=== PATIENT | male | born 1950 | race American Indian/Alaskan Native ===

== ENCOUNTER 2018-08-24 09:59 | Emergency (ER) | payer MEDICARE ==
[2018-08-24 10:06] VITALS: BP 137/76
--- NOTE | 2018-08-24 11:05 | Cat Scan Report ---
CT HEAD WITHOUT CONTRAST: HISTORY: Fall, head trauma. TECHNIQUE: Sequential 2.5mm CT images. COMPARISON: none. FINDINGS: Cerebral Parenchyma: Within normal limits. Cerebellum: Within normal limits. Brainstem: Within normal limits. Ventricles: Normal. Sella: Normal. Extra-axial spaces: Normal. Basal Cisterns: Normal. Intracranial Hemorrhage: None. Midline Shift: None. Calvarium: Normal. Sinuses: Normal. Mastoid Air Cells: Normal. Visualized Orbits: Normal. IMPRESSION: Cranial CT scan within normal limits.
--- NOTE | 2018-08-24 11:09 | XRay Report ---
RIGHT WRIST, 3 VIEWS: History: Fall, pain. Borderline bone mineralization. Mild osteoarthritic changes are identified. A mildly displaced fracture is identified near the base of the fifth metacarpal. No calcified callus is appreciated consistent with acute injury. Soft tissue vascular calcifications are noted. IMPRESSION: Fracture, fifth metacarpal base. Mild osteoarthritis.
--- NOTE | 2018-08-24 11:48 | Emergency Department Report ---
HPI - General Chief Complaint: Fall - HPI HPI: pATIENT WAS UNABLE TO BE LOCATED AT APPROXIMATELY 10:15 FROM THE ER WAITING ROOM. Results of his radiology studies have been noted. He does have a fracture of his hand. I have called the patient's phone number which she provided this morning. And left a voicemail for him to return the call. He should come back for further evaluation ED Past Medical Hx - Past Medical History Previous Medical History?: Yes Hx Renal Disease: Yes Additional medical history: Right kidney transplant 09/05/2015 - Surgical History Past Surgical History?: Yes Additional Surgical History: kidney transplant 09/05/2015. back surgery - Social History Smoking Status: Never Smoker Substance Use Type: None ED Review of Systems ROS: Stated complaint: FELL Other details as noted in HPI Physical Exam - Physical Exam Vital Signs: Vital Signs 08/24/18 10:05 Temperature 98.2 F Pulse Rate 81 Respiratory 16 Rate Blood Pressure 137/76 [Right] O2 Sat by Pulse 97 Oximetry ED Course Vital Signs 08/24/18 10:05 Temperature 98.2 F Pulse Rate 81 Respiratory 16 Rate Blood Pressure 137/76 [Right] O2 Sat by Pulse 97 Oximetry Critical care attestation.: If time is entered above; I have spent that time in minutes in the direct care of this critically ill patient, excluding procedure time. ED Disposition Clinical Impression: Fracture Disposition: Z-07 ELOPED Is pt being admited?: No Does the pt Need Aspirin: No Condition: Stable Referrals: PRIMARY CARE, [Primary Care Provider] - 3-5 Days
--- NOTE | 2018-08-24 11:58 | Emergency Department Report ---
ED Fall HPI - General Chief Complaint: Fall Stated Complaint: FELL Source: patient Mode of arrival: Ambulatory - History of Present Illness Initial Comments: Patient is 67 years old male, presented to the emergency room for evaluation after a fall this morning. 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 Patient stating that he's been having headache since then. He also complained of right hand pain. Patient denied any loss of consciousness, neck pain, chest pain, shortness of breath, abdominal pain or other extremities pain. MD Complaint: fall -: This morning Fall From: standing When Fall Occurred: 1-3 hours [employer] Fall Witnessed: yes, by family Place Fall Occurred: street Loss of Consciousness: none Prolonged Down Time?: no Symptoms Prior to Fall: none Location: head, face Location - Extremities: Right: Hand Severity: moderate Severity scale (0 -10): 6 Quality: sharp Context: tripped/slipped Associated Symptoms: denies - Related Data Allergies Allergy/AdvReac Type Severity Reaction Status Date / Time No Known Allergies Allergy Unverified 12/07/13 12:44 ED Review of Systems ROS: Stated complaint: FELL Other details as noted in HPI Comment: All other systems reviewed and negative Constitutional: denies: chills, fever Respiratory: denies: cough, orthopnea, shortness of breath, SOB with exertion Cardiovascular: denies: chest pain, palpitations, dyspnea on exertion Gastrointestinal: denies: abdominal pain, nausea, vomiting, diarrhea, constipation, hematemesis, melena Musculoskeletal: denies: back pain Skin: other (abrasions lateral to the right eyebrow) Neurological: headache. denies: weakness, numbness, paresthesias, confusion, abnormal gait ED Past Medical Hx - Past Medical History Previous Medical History?: Yes Hx Renal Disease: Yes Additional medical history: Right kidney transplant 09/05/2015 - Surgical History Past Surgical History?: Yes Additional Surgical History: kidney transplant 09/05/2015. back surgery - Social History Smoking Status: Never Smoker Substance Use Type: None ED Physical Exam - General Limitations: No Limitations General appearance: alert, in no apparent distress - Head Head exam: Present: atraumatic, normocephalic, normal inspection - Eye Eye exam: Present: normal appearance - ENT ENT exam: Present: normal exam, normal orophraynx, mucous membranes moist - Neck Neck exam: Present: normal inspection, full ROM. Absent: tenderness, meningismus, lymphadenopathy, thyromegaly - Respiratory Respiratory exam: Present: normal lung sounds bilaterally - Cardiovascular Cardiovascular Exam: Present: regular rate, normal rhythm, normal heart sounds - GI/Abdominal GI/Abdominal exam: Present: soft, normal bowel sounds. Absent: distended, tenderness, guarding, rebound, rigid - exam: Present: normal inspection - Extremities Exam Extremities exam: Present: normal capillary refill. Absent: pedal edema, calf tenderness - Expanded Upper Extremity Exam Right Shoulder Exam: Present: normal inspection, full ROM Upper Arm exam: Present: normal inspection, full ROM Elbow exam: Present: normal inspection, full ROM. Absent: tenderness Forearm Wrist exam: Present: normal inspection, full ROM Hand Wrist exam: Present: tenderness, swelling. Absent: abrasion, laceration, ecchymosis, deformity, crepidus, dislocation - Back Exam Back exam: Present: normal inspection, full ROM. Absent: tenderness, CVA tenderness (R), CVA tenderness (L), muscle spasm, paraspinal tenderness - Neurological Exam Neurological exam: Present: alert, oriented X3 ED Course Vital Signs 08/24/18 10:05 Temperature 98.2 F Pulse Rate 81 Respiratory 16 Rate Blood Pressure 137/76 [Right] O2 Sat by Pulse 97 Oximetry - Orthopedic Splinting/Casting Injury #1 Side: right Upper Extremity Injury Location: hand Upper Extremity Immobilizer: ulnar gutter ED Medical Decision Making - Radiology Data Radiology results: report reviewed Referring Physician: DULCE MARIA JACOBS Patient Name: MINISTERIO JIMENEZ Date of : 1950 Sex: Male Report Date: 2018-08-24 Report Status: Finalized Findings [facility] [address] [place] [address] XRay Report Signed Patient: MINISTERIO JIMENEZ MR#: [id number] : 1950 Acct:[id number] Age/Sex: 67 / M ADM Date: 08/24/18 Loc: ED Attending Dr: Ordering Physician: DULCE MARIA JACOBS MD Date of Service: 08/24/18 Procedure(s): XR wrist 3+V RT Accession Number(s): [id number] cc: ED MD REYNALDO Fluoro Time In Minutes: RIGHT WRIST, 3 VIEWS: History: Fall, pain. Borderline bone mineralization. Mild osteoarthritic changes are identified. A mildly displaced fracture is identified near the base of the fifth metacarpal. No calcified callus is appreciated consistent with acute injury. Soft tissue vascular calcifications are noted. IMPRESSION: Fracture, fifth metacarpal base. Mild osteoarthritis. Transcribed By: TTR Dictated By: ANNALISA HILTON JR, MD Electronically Authenticated By: ANNALISA HILTON JR, MD Signed Date/Time: 08/24/18 110 Referring Physician: DULCE MARIA JACOBS Patient Name: MINISTERIO JIMENEZ Date of : 1950 Sex: Male Report Date: 2018-08-24 Report Status: Finalized Findings [facility] [address] [place] [address] Cat Scan Report Signed Patient: MINISTERIO JIMENEZ MR#: [id number] : 1950 Acct:[id number] Age/Sex: 67 / M ADM Date: 08/24/18 Loc: ED Attending Dr: Ordering Physician: DULCE MARIA JACOBS MD Date of Service: 08/24/18 Procedure(s): CT head/brain wo con Accession Number(s): [id number] cc: DULCE MARIA JACOBS MD CT HEAD WITHOUT CONTRAST: HISTORY: Fall, head trauma. TECHNIQUE: Sequential 2.5mm CT images. COMPARISON: none. FINDINGS: Cerebral Parenchyma: Within normal limits. Cerebellum: Within normal limits. Brainstem: Within normal limits. Ventricles: Normal. Sella: Normal. Extra-axial spaces: Normal. Basal Cisterns: Normal. Intracranial Hemorrhage: None. Midline Shift: None. Calvarium: Normal. Sinuses: Normal. Mastoid Air Cells: Normal. Visualized Orbits: Normal. IMPRESSION: Cranial CT scan within normal limits. Transcribed By: TTR Dictated By: ANNALISA HILTON JR, MD Electronically Authenticated By: ANNALISA HILTON JR, MD Signed Date/Time: 08/24/18 110 DD/ 1102 TD/TT: 08/24/18 1102 DD/ 1106 TD/TT: 08/24/18 1107 Critical care attestation.: If time is entered above; I have spent that time in minutes in the direct care of this critically ill patient, excluding procedure time. ED Disposition Clinical Impression: Fracture, Fracture of fifth metacarpal bone, Fall, Abrasion of face Disposition: TO HOME OR SELFCARE Is pt being admited?: No Condition: Stable Instructions: Hand Fracture (ED), Abrasion (ED), Fall Prevention (ED) Referrals: PRIMARY CAREMD [Primary Care Provider] - 3-5 Days LONI SILVA MD [Staff Physician] - 3-5 Days
== END 2018-08-24 13:16 | disposition home or self-care (01) ==
LOC: ED 09:59
DX: S62.306A Unspecified fracture of fifth metacarpal bone, right hand, initial encounter for closed fracture (principal); S00.211A Abrasion of right eyelid and periocular area, initial encounter; W19.XXXA Unspecified fall, initial encounter; Y93.89 Activity, other specified; Y99.8 Other external cause status; Y92.89 Other specified places as the place of occurrence of the external cause
CPT/HCPCS: 70450

== ENCOUNTER 2018-09-28 16:31 | Outpatient (CLI) | payer MEDICARE ==
--- NOTE | 2018-09-28 17:20 | XRay Report ---
FINAL REPORT EXAM: XR WRIST 3+V RT HISTORY: PAIN IN RIGHT WRIST TECHNIQUE: PA, oblique and lateral radiographs of the right wrist. PRIORS: 08/24/2018. FINDINGS: Subacute, ununited fracture of the proximal aspect of the right 5th metacarpal is again seen. Mild pr ogression of healing is noted. No new fracture is seen. No dislocation. Normal mineralization. No soft tissue abnormality. Moderate to severe degenerative changes of the right wrist are seen. IMPRESSION: 1. Mild progression of healing of the fracture of the base of the right 5th metacarpal. 2. 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
== END 2018-09-28 16:32 | disposition home or self-care (01) ==
LOC: XRAY 16:31
PROVIDERS: ATTEND Orthopaedic Surgery
DX: S62.316D Displaced fracture of base of fifth metacarpal bone, right hand, subsequent encounter for fracture with routine healing (principal); M19.031 Primary osteoarthritis, right wrist; X58.XXXD Exposure to other specified factors, subsequent encounter

== ENCOUNTER 2019-04-01 09:07 | Outpatient (CLI) | payer MEDICARE ==
[2019-04-01 09:37] LABS: Hematocrit 39.9 % (35.5-45.6); Hemoglobin 12.9 gm/dl (11.8-15.2); Mean Corpuscular HGB Conc 32 % (32-34); Mean Corpuscular Volume 83 fl (84-94); Platelet Count 114 K/mm3 (140-440); Red Blood Count 4.81 M/mm3 (3.65-5.03); Red Cell Distribution Width 13.6 % (13.2-15.2)
[2019-04-01 09:53] LABS: Alanine Aminotransferase 12 units/L (7-56); Albumin 4.3 g/dL (3.9-5); BUN/Creatinine Ratio 15; Blood Urea Nitrogen 12 mg/dL (9-20); Calcium 9.5 mg/dL (8.4-10.2); Hemolysis Index 1
[2019-04-01 10:45] LABS: Creatinine,Urine 61.1 mg/dL (0.1-20.0); Protein/Creatinine Ratio,Urine 0.1
== END 2019-04-01 09:08 | disposition home or self-care (01) ==
LOC: LAB 09:07
PROVIDERS: ATTEND Internal Medicine
DX: Z48.22 Encounter for aftercare following kidney transplant (principal); I10 Essential (primary) hypertension; M54.5 Low back pain; N25.81 Secondary hyperparathyroidism of renal origin; B18.2 Chronic viral hepatitis C; Q61.3 Polycystic kidney, unspecified
CPT/HCPCS: 36415; 80053; 80197; 82570; 84156; 85027